=== PATIENT | female | born 1950 | race Caucasian/White ===

== ENCOUNTER 2018-05-12 19:29 | Emergency (ER) | payer SELFPAY ==
[~2018-05-12] VITALS: Ht 152.4 cm; Wt 44.7 kg
[2018-05-12 19:50] VITALS: Ht 152.4 cm; Wt 44.7 kg
[2018-05-12] MEDS ORDERED: IBUPROFEN 600 MG TAB PO ONE (21:00)
[2018-05-12] MEDS ORDERED: FLUORESCEIN STRIP RIGHT EYE ONE (21:00)
[2018-05-12] MEDS ORDERED: POLY10DR19 RIGHT EYE (22:47)
[2018-05-12] MEDS ORDERED: IBUP-1542 PO (22:47)
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
[2018-05-12 23:51] VITALS: BP 117/63; PULSE 59; RESP 18
== END 2018-05-12 23:52 | disposition home or self-care (01) ==
LOC: FTE 19:29
DX: S00.211A Abrasion of right eyelid and periocular area, initial encounter (principal); R51 Headache; W22.8XXA Striking against or struck by other objects, initial encounter; Y92.9 Unspecified place or not applicable
CPT/HCPCS: 70450; 70480